=== PATIENT | female | born 1990 | race American Indian/Alaskan Native ===

== ENCOUNTER 2017-07-16 16:06 | Emergency (ER) | payer BC ==
--- NOTE | 2017-07-16 17:56 | Emergency Department Report ---
History of Present Illness - General Chief Complaint: Overdose Stated Complaint: OVERDOSE Time Seen by Provider: 07/16/17 17:37 Source: EMS Mode of arrival: Stretcher Limitations: Other - History of Present Illness MD Complaint: intentional overdose -: Gradual Intent: suicide attempt How Overdose Was Discovered: called family/friend Context: Intentional Overdose: relationship problems, work problems, financial issues Associated Symptoms: depression Treatments Prior to Arrival: none - Related Data Allergies Allergy/AdvReac Type Severity Reaction Status Date / Time No Known Allergies Allergy Unverified 07/16/17 16:50 ED Review of Systems ROS: Stated complaint: OVERDOSE Other details as noted in HPI Comment: All other systems reviewed and negative ED Past Medical Hx - Past Medical History Hx Psychiatric Treatment: Yes (depression) - Social History Smoking Status: Current Every Day Smoker Substance Use Type: None ED Physical Exam - General Limitations: Other General appearance: alert, in no apparent distress - Head Head exam: Present: atraumatic, normocephalic - Eye Eye exam: Present: normal appearance - ENT ENT exam: Present: mucous membranes moist - Neck Neck exam: Present: normal inspection - Respiratory Respiratory exam: Present: normal lung sounds bilaterally. Absent: respiratory distress - Cardiovascular Cardiovascular Exam: Present: regular rate, normal rhythm. Absent: systolic murmur, diastolic murmur, rubs, gallop - GI/Abdominal GI/Abdominal exam: Present: soft, normal bowel sounds - Extremities Exam Extremities exam: Present: normal inspection - Back Exam Back exam: Present: normal inspection - Neurological Exam Neurological exam: Present: alert, oriented X3 - Psychiatric Psychiatric exam: Present: normal affect, normal mood - Skin Skin exam: Present: warm, dry, intact, normal color. 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 ED Disposition Clinical Impression: Suicidal ideation Disposition: [id number]/TX-65 PSY HOSP/PSY UNIT Is pt being admited?: No Does the pt Need Aspirin: No Condition: Good Referrals: PRIMARY CARE, [Primary Care Provider] - 3-5 Days Time of Disposition: 20:18
[2017-07-16 17:59] LABS: Basophils % (Auto) 0.4 % (0.0-1.8); Eosinophils % (Auto) 0.2 % (0.0-4.3); Hematocrit 41.7 % (30.3-42.9); Hemoglobin 13.7 gm/dl (10.1-14.3); Mean Corpuscular HGB Conc 33 % (30-34); Mean Corpuscular Hemoglobin 28 pg (28-32); Mean Corpuscular Volume 84 fl (79-97); Platelet Count 374 K/mm3 (140-440); Red Blood Count 4.97 M/mm3 (3.65-5.03); Red Cell Distribution Width 12.9 % (13.2-15.2); White Blood Count 4.8 K/mm3 (4.5-11.0)
[2017-07-16 18:19] LABS: Anion Gap 22 mmol/L; BUN/Creatinine Ratio 13.33; Blood Urea Nitrogen 8 mg/dL (7-17); Calcium 9.8 mg/dL (8.4-10.2); Carbon Dioxide 23 mmol/L (22-30); Chloride 100.9 mmol/L (98-107); Glucose 80 mg/dL (65-100); Potassium 4.6 mmol/L (3.6-5.0); Sodium 141 mmol/L (137-145)
[2017-07-16 18:50] LABS: Urine Drugs of Abuse Note Disclamer
[2017-07-16 19:25] LABS: Bacteria,Urine 2+ /HPF (Negative); Bilirubin,Urine NEG (Negative); Blood,Urine SM (Negative); Ketones,Urine 20 mg/dL (Negative); Leukocyte Esterase,Urine SM (Negative); Mucus,Urine 3+ /HPF; Nitrite,Urine NEG (Negative); Urobilinogen,Urine < 2.0 mg/dL (<2.0)
[2017-07-16] MEDS ORDERED: TYLENOL ONE (21:44)
[2017-07-16] MEDS ORDERED: TYLENOL PO ONE (21:47)
[2017-07-17 07:31] VITALS: BP 125/74
--- NOTE | 2017-07-17 11:39 | Consultation ---
History of Present Illness - Reason for Consult Consult date: 07/17/17 Reason for consult: Mental Health Evaluation Requesting physician: OTIS DEL ROSARIO - Chief Complaint Chief complaint: "I let me family down" - History of Present Psychiatric Illness 27 y.o. black female presenting to [facility] for overdose. Today patient is calm and cooperative during the assessment. She stated that she was at [facility] (lod ) and got into an dispute with a staff member. She stated that conversation made her "mad." She stated after the argument she was told that she would have to be a commuter resident because the staff felt like she maybe a disturbance ( to other residents). She felt that she may not be able to complete the PHP and became "depressed." She stated that she felt like she let her family down. She stated that her priority was to complete the PHP. Per the patient, she thought about what had happened and decided to overdose on multiple Zoloft pills. She admit to a past suicide attempt by overdosing on pills. She couldn't not deny or confirm being suicidal currently. She denies HI's and AVH's. Patient stated having problems starting sleep and a poor appetite. She admit to marijuana use, but denies excessive alcohol consumption. Medications and Allergies Allergies Allergy/AdvReac Type Severity Reaction Status Date / Time No Known Allergies Allergy Verified 07/16/17 21:47 Past psychiatric history - Past Medical History Past Medical History: No medical history Past Surgical History: No surgical history - past Psychiatric treatment and history Psych: Depression psychiatric treatment history: Recent inpatient psy setting at [facility] Jun 2017. Family hx of depression. - Social History Social history: lives with family ([employer] graduate with some college) Mental Status Exam - Vital signs Last Vital Signs Temp 99 F 07/17/17 07:20 Pulse 60 07/17/17 07:20 Resp 16 07/17/17 07:20 BP 125/74 07/17/17 07:20 Pulse Ox 98 07/17/17 07:20 - Exam Narrative exam: ROS: (+) depression MSE: Appearance: calm, cooperative, emotional Behavior: poor eye contact Speech: regular rate and tone Mood: "depressed" Affect: labile Thought Process: linear Thought Content: denies SI/HI's and AVH's Motor Activity: ambulatory Cognition: A/Ox 3 Insight: variable Judgment: variable Results Result Diagrams: 07/16/17 17:18 07/16/17 17:18 Abnormal lab results 07/16/17 07/16/17 07/16/17 Range/Units 17:18 17:18 18:46 RDW 12.9 L (13.2-15.2) % Lymph # 1.0 L (1.2-5.4) K/mm3 Seg Neutrophils % 71.6 H (40.0-70.0) % Creatinine 0.6 L (0.7-1.2) mg/dL Urine WBC (Auto) 15.0 H (0.0-6.0) /HPF All other labs normal. Assessment and Plan Assessment and plan: Impression: Historical Dx: Depression. Unspecified Mood DO. Impulsive behavior. Substance Use DO (marijuana). Today patient is calm and cooperative during the assessment. DDx: R/O Bipolar Recommendation/Plan: Continue 1013 with placement to [facility] today. Discussed generalized coping skills with patient.
== END 2017-07-17 12:15 ==
LOC: ED 16:06
DX: F32.9 Major depressive disorder, single episode, unspecified (principal); F17.200 Nicotine dependence, unspecified, uncomplicated
CPT/HCPCS: 36415; 80048; 80307; 81001; 85025; 99285; G0480; 80320